=== PATIENT | female | born 1955 | race Caucasian/White ===

== ENCOUNTER 2019-09-09 11:11 | Emergency (ER) | payer MEDICARE ==
[~2019-09-09] VITALS: Ht 152.4 cm; Wt 70.3 kg
[2019-09-09 12:50] VITALS: BP 123/84
== END 2019-09-09 13:20 | disposition home or self-care (01) ==
LOC: ER 11:11
DX: S01.80XD Unspecified open wound of other part of head, subsequent encounter (principal); I10 Essential (primary) hypertension; Z88.0 Allergy status to penicillin; X58.XXXD Exposure to other specified factors, subsequent encounter